=== PATIENT | female | born 1995 | race Caucasian/White ===

== ENCOUNTER 2021-07-10 07:38 | Emergency (ER) | payer OTHER ==
[2021-07-10 07:51] VITALS: BP 114/74; PULSE 99; RESP 18; TEMP 99
[2021-07-10] MEDS ORDERED: cefTRIAXone 1,000 MG VIAL (IM USE) IM STA (08:50)
[2021-07-10] MEDS ORDERED: ACET/COD 300 MG/30 MG STARTER PACK 6 TAB BTL PO STA (08:50)
--- NOTE | 2021-07-10 08:57 | ED ---
General Adult HPI - General Chief complaint: Dental/Oral Stated complaint: Oral Abscess Time Seen by Provider: 07/10/21 07:55 Source: patient, RN notes reviewed Mode of arrival: ambulatory Limitations: no limitations - History of Present Illness Initial comments: 26-year-old female presents to the emergency room for dental pain. Patient states she has swelling in her jaw. Patient states that she did come here but left without being seen 2 days ago. Patient went to another hospital and was prescribed amoxicillin. Patient states she started this 24 hours ago. States the swelling is worsening and she is having pain. Denies fevers. States she has been taking naproxen for pain.she denies trismus is, sublingual edema, difficulty swallowing, swelling in the neck. Patient has no other complaints at this time including shortness of breath, chest pain, abdominal pain, nausea or vomiting, headache, or visual changes. - Related Data Previous Rx's Medication Instructions Recorded Amoxicillin/Potassium Clav 1 tab PO Q12HR #20 tab 07/10/21 [Augmentin 875-125 Tablet] Allergies Allergy/AdvReac Type Severity Reaction Status Date / Time chloral hydrate Allergy Rash/Hives Verified 07/10/21 07:51 Review of Systems ROS Statement: Those systems with pertinent positive or pertinent negative responses have been documented in the HPI. ROS Other: All systems not noted in ROS Statement are negative. Past Medical History Past Medical History: No Reported History History of Any Multi-Drug Resistant Organisms: None Reported Past Surgical History: No Surgical Hx Reported Past Psychological History: Anxiety, Depression, PTSD Smoking Status: Current every day smoker Past Alcohol Use History: None Reported Past Drug Use History: Marijuana General Exam Limitations: no limitations General appearance: alert, in no apparent distress Head exam: Present: atraumatic Eye exam: Present: normal appearance, PERRL, EOMI. Absent: scleral icterus, conjunctival injection ENT exam: Present: mucous membranes moist. Absent: normal oropharynx (Edema noted of right mandibular area. Abscess palpated along the right lower jaw.) Neck exam: Present: normal inspection, full ROM. Absent: tenderness Respiratory exam: Present: normal lung sounds bilaterally. Absent: respiratory distress, wheezes Cardiovascular Exam: Present: regular rate, normal rhythm, normal heart sounds Course Vital Signs 07/10/21 07:47 Temperature 99.0 F Pulse Rate 99 Respiratory 18 Rate Blood Pressure 114/74 O2 Sat by Pulse 97 Oximetry Procedures - Incision & Drainage Consent Obtained: verbal consent Indication: abscess Site: oral Amount (mLs): 5 I&D Drainage Obtained: Pus Patient Tolerated Procedure: well, no complications Medical Decision Making - Medical Decision Making She does have edema of the external lower right mandible. There is no sublingual edema or trismus. No difficulty swallowing. I did incise and drain abscess and 5 mL of pus was removed. Patient is taking amoxicillin but we will start her on Augmentin tonight instead. She will be given a dose of Rocephin here in the emergency room. She was given referrals to outpatient resources however I discussed strict return parameters with her. If symptoms are not starting to improve by tomorrow morning she needs to return for further evaluation. Disposition Clinical Impression: Dental abscess Disposition: HOME SELF-CARE Condition: Good Instructions (If sedation given, give patient instructions): Dental Abscess (ED) Additional Instructions: Please take medication as directed. Follow-up with your dentist or primary care doctor. If symptoms are not starting to improve by tomorrow morning you need to return to the emergency room. [facility] [address] [facility] [id number] (existing clients only) New clients: [phone] 1st consult: $50 (includes XRs) Usually 30% less than private dentist for visits after. [employer] [facility] [employer] Have to pay $50 for Xrays and rest is covered [phone] Prescriptions: Amoxicillin/Potassium Clav [Augmentin 875-125 Tablet] 1 tab PO Q12HR #20 tab Is patient prescribed a controlled substance at d/c from ED?: No Referrals: Iza Rose MD [REFERRING] - 1-2 days Time of Disposition: 08:55
== END 2021-07-10 09:10 | disposition home or self-care (01) ==
LOC: EC 07:38
DX: K04.7 Periapical abscess without sinus (principal); F17.200 Nicotine dependence, unspecified, uncomplicated; F12.90 Cannabis use, unspecified, uncomplicated
CPT/HCPCS: 41800; 99282; 96372; J0696